=== PATIENT | female | born 1990 | race Caucasian/White ===

== ENCOUNTER 2018-08-03 17:17 | Day surgery (SDC) | payer BC ==
[2018-08-03 18:04] VITALS: BP 119/66; TEMP 99.5; BMI 36.7
--- NOTE | 2018-08-03 18:38 | PDOC.EVN ---
Event Note - Event Note Event Note: [facility] Attending note H&P Patient first seen by Dr Katlin Cruz (FM Resident mailing section clerk) HPI: 28 yo at 35 weeks 1 day with CTX since 1500, every 3-5 minutes, rated as 4/10 pain. No LOF, no sxs, no recent trauma or sex. Good FM. No ESPINOZA or visual changes. Review of Systems: Negative as per HPI Past OB HX: SAB at 7 weeks last year Past Surg HX: appendectomy Past medical HX: none Allergies: PCN Social: negative Physical: VSS AFEB NAD but with some ctx discomfort Abd soft and size consistent Cervix: pending Monitors: FHT baselines 130s, reactive; toco with CTX every 3-5 Interventions ordered: cath UA; IVF hydration Assessment and Plan: 1. Threatened PTL at 35 weeks 1 day: Plan: 1. Cervix check pending 2. If suspect true PTL, will give steroids for EGA les than 36 weeks 6 days; will get sono for EGA if needed 3. Pain meds prn 4. Hydrate and sedate
--- NOTE | 2018-08-03 19:10 | PDOC.EVN ---
Event Note - Event Note Event Note: Cervix checked by me after patient emptied her bladder (Cath for UA): 11/07/-2/ceph/BOWI/posterior, moderate consistency. I do not suspect active PTL. We will hydrate and sedate and recheck strip in 1 hour, possible cervival recheck. I discussed steroids if deemed at risk for delivery in 7 days but I do not feel this is active PTL at this time. Obs for now Plan D/W patient and partner and all questions covered.
--- NOTE | 2018-08-03 19:49 | PDOC.LDHP ---
Labor and Delivery H&P HPI: Chief complaint: contractions HPI: 28 y/o @ 35.1 WGA by LMP c/w 1T US presents with ctx. The patient reports that her contractions started around 3pm and are every 4-5 minutes. She rates them as 4/10 severity. She denies any LOF, vaginal bleeding, vaginal discharge, dysuria, fever. She denies any recent sexual activity or trauma. She reports good movement. She states that she drinks a lot of water throughout the day. Current gestational age (weeks): 35 (35w1d) Due date: 09/06/18 Dating criteria: last menstrual period, first trimester ultrasound Grav: 2 Para: 0 OB History Details: prior SAB last year at around 7 weeks Current complications: none Abnormal US findings: No Past Medical History: Denies Current medications: pre-kushal vitamins Previous surgical history: appendectomy Allergies/Adverse Reactions: Allergies Allergy/AdvReac Type Severity Reaction Status Date / Time penicillin G Allergy Verified 08/03/18 18:11 Penicillins Allergy Verified 08/03/18 18:11 Social history: none - Physical Exam Vital signs reviewed and normal: yes General: NAD, resting Heart: RRR Lungs: CTAB Abdomen: gravid Extremeties: no edema FHT: category 1 (baseline 135/mod variability/+accels/no decels), variability present Rodessa contractions every: 4-5 minutes - Vaginal Exam cm dilated: 1 Effacement: 25% (20%) Station: -2 - OB Labs Blood type: O RH: positive Antibody Screen: negative HIV: negative RPR: negative HEPSAg: negative 1 hour GCT: negative GBS: unknown Rubella: immune - Assessment 1. sIUP - rule out pre-term labor - Plan -: -1L LR bolus -Cath UA -Stadol 1mg, Phenergan 25mg -Monitor until contractions space out Allergies/Adverse Reactions: Allergies Allergy/AdvReac Type Severity Reaction Status Date / Time penicillin G Allergy Verified 08/03/18 18:11 Penicillins Allergy Verified 08/03/18 18:11
[2018-08-03] MEDS ORDERED: Promethazine HCl 25 MG/ML VIAL IM/IV SCH (20:00)
[2018-08-03] MEDS ORDERED: Butorphanol Tartrate 1 MG/ML VIAL SLOW IVP SCH (20:00)
[2018-08-03] MEDS ORDERED: Lactated Ringer's 1,000 ML IV SCH (20:00)
--- NOTE | 2018-08-03 20:09 | PDOC.EVN ---
Event Note - Event Note Event Note: Note: Dr Torres initial entries were under an incorrect J number for this patient. She is aware of those entries in the incorrect account.
[2018-08-03 20:48] LABS: Bilirubin Negative (Negative); Blood, Urine Negative (Negative); Clarity CLEAR (Clear); Glucose, Urine (Dipstick) Negative (Negative); Leukocyte Negative (Negative); Nitrite Negative (Negative); Protein, Urine (Dipstick) Negative (Neg-Trace); Specific Gravity, Urine 1.003 (1.002-1.036); Urobilinogen 0.2 mg/dL (0.2-1.0)
--- NOTE | 2018-08-03 20:59 | PDOC.EVN ---
Event Note - Event Note Event Note: Urinalysis came back normal. Patient's contractions have spaced out significantly since the stadol/phenergan/ LR. She has not had a contraction for about 20 minutes and prior to that they were every 8-10 minutes. Will d/c patient home. Gave strict labor precautions including: regular, painful ctx, LOF, vaginal bleeding, decreased movement. Encouraged continued routine f/u with PCP.
== END 2018-08-03 21:10 | disposition home or self-care (01) ==
LOC: L&D/OP 17:17
PROVIDERS: ATTEND Advanced Practice Midwife
DX: O47.03 False labor before 37 completed weeks of gestation, third trimester (principal); Z3A.35 35 weeks gestation of pregnancy; Z79.899 Other long term (current) drug therapy; Z88.0 Allergy status to penicillin
CPT/HCPCS: 81003; 96360; 96361; 99283

== ENCOUNTER 2018-08-24 00:27 | Inpatient (IN) | payer BC ==
[2018-08-24] MEDS ORDERED: Diphenoxylate HCl/Atropine Tablet PO PRN ×2 (00:59)
[2018-08-24] MEDS ORDERED: HYDROcodone/Acetaminophen 5/325 mg Tablet PO PRN ×4 (00:59→21:10)
[2018-08-24] MEDS ORDERED: Lactated Ringer's 1,000 ML IV PRN (00:59)
[2018-08-24] MEDS ORDERED: Promethazine HCl 25 MG/ML VIAL IM PRN ×2 (00:59→13:29)
[2018-08-24] MEDS ORDERED: Methylergonovine 0.2 MG/ML VIAL IM PRN ×2 (00:59→21:10)
[2018-08-24] MEDS ORDERED: Misoprostol 200 MCG TAB PR PRN (00:59)
[2018-08-24] MEDS ORDERED: NS / Oxytocin 40 units/1000ml 1,000 ML IV PRN (00:59)
[2018-08-24] MEDS ORDERED: Ibuprofen 800 MG TAB PO PRN (00:59)
[2018-08-24] MEDS ORDERED: Lidocaine 1% (PF) 30 ML VIAL SC PRN (00:59)
[2018-08-24] MEDS ORDERED: Carboprost 250 MCG/ML AMP IM PRN (00:59)
[2018-08-24] MEDS ORDERED: Ondansetron PF 4 MG/2 ML Vial IVP PRN ×3 (00:59→21:10)
[2018-08-24 02:04] LABS: Hemoglobin 12.5 g/dL (12.0-16.0); Mean Corpuscular HGB CONC 34.3 g/dL (32.0-36.0); Mean Corpuscular Hemoglobin 29.6 pg (27.0-31.0); Mean Corpuscular Volume 86.4 fL (78.0-98.0); Mean Platelet Volume 10.6 fL (7.4-10.4); Platelet Count 196 thou/uL (130-400); RBC Distribution Width 11.7 % (11.5-14.5); Red Blood Cell (RBC) Count 4.22 mill/uL (4.20-5.40); White Blood Cell (WBC) Count 14.2 thou/uL (4.8-10.8)
[2018-08-24 02:51] LABS: HBSAg Index 0.25 S/CO (0-0.99); Hep B Surf Ag Non-Reactive S/CO (NonReactive)
[2018-08-24 04:31] VITALS: BMI 39.4
[2018-08-24 05:48] LABS: Syphilis Antibody Nonreactive (Nonreactive); Syphilis Antibody Index 0.05 S/CO (<1.00 Non-Reactive)
[2018-08-24] MEDS ORDERED: Butorphanol Tartrate 1 MG/ML VIAL ONE (07:15)
[2018-08-24] MEDS ORDERED: Terbutaline Sulfate 1 MG/ML VIAL ONE (07:27)
[2018-08-24] MEDS ORDERED: Butorphanol Tartrate 1 MG/ML VIAL SLOW IVP PRN (12:03)
[2018-08-24] MEDS ORDERED: Terbutaline Sulfate 1 MG/ML VIAL SC PRN (12:04)
--- NOTE | 2018-08-24 12:06 | PDOC.LDHP ---
Labor and Delivery H&P Chief complaint: loss of fluid HPI: Patient called CNM apprxmatly 2100 last night to report SROM with big clear gush of fluid and popping sensation. She was having mild contractions prior to the water breaking. Three hours later, she was luh every three minutes and hurting and headed to the hospital. Current gestational age (weeks): 38 Dating criteria: last menstrual period Grav: 1 Para: 0 Current complications: none Abnormal US findings: No Current medications: pre- vitamins Allergies/Adverse Reactions: Allergies Allergy/AdvReac Type Severity Reaction Status Date / Time penicillin G Allergy Verified 08/24/18 04:35 Penicillins Allergy Verified 08/24/18 04:35 Social history: none - Physical Exam Vital signs reviewed and normal: yes General: breathing through contractions Lungs: nonlabored breathing Abdomen: gravid Extremeties: trace edema FHT: category 1 - Vaginal Exam cm dilated: 3 Effacement: 75% Station: -1 - OB Labs Blood type: O RH: positive Antibody Screen: negative HIV: negative RPR: negative HEPSAg: negative GBS: negative Urine drug screen: not done - Assessment L&D Assessment: term rupture in membranes (with regular uterine contractions) - Plan Plan: admit to L&D
--- NOTE | 2018-08-24 12:10 | PDOC.LDPN ---
Labor & Delivery Progress Note - Subjective Subjective: painful contractions - Objective Vital signs reviewed and normal: yes General: breathing through contractions Uterine fundus: non tender Dilation: 5 Effacement: 90% Station: -1 FHT: category 2 (prolonged later decelerations initially in the 60s then recovered to 90s. fully recovered at 10 mins. IUPC and FSE placed) IUPC placed: yes FSE placed: yes Resuscitative measures: maternal oxygen, maternal IV fluids, maternal position change Plan: other (terbutaline given. ) -: this is a late entry for labor event which happened at approximately 0745 this am.
[2018-08-24] MEDS ORDERED: Fentanyl 4 mcg/Bup 0.1% Cadd 100 ML ONE (12:53)
[2018-08-24] MEDS ORDERED: NS w/ Oxytocin 10 units 500 ML IV SCH (13:00)
[2018-08-24] MEDS ORDERED: Lactated Ringer's 500 ML IV PRN (13:29)
[2018-08-24] MEDS ORDERED: Acetaminophen 325 MG TAB PO PRN (13:29)
[2018-08-24] MEDS ORDERED: Naloxone HCl 0.4 mg/ml Vial IVP PRN ×2 (13:29)
[2018-08-24] MEDS ORDERED: ePHEDrine/0.9% NaCl/PF SYRINGE 50 mg/10 ml SLOW IVP PRN (13:29)
[2018-08-24] MEDS ORDERED: diphenhydrAMINE 50 MG/ML VIAL IVP PRN (13:29)
[2018-08-24] MEDS ORDERED: Eucerin (Mineral Oil/Petrolatum,White) 30 gm Jar TOP PRN (13:29)
[2018-08-24] MEDS ORDERED: Fentanyl 4 mcg/Bupivacaine 0.1% Cassette 100 ML EPIDURAL SCH (13:30)
[2018-08-24] MEDS ORDERED: Communication Order-Pharmacy FS SCH (13:30)
--- NOTE | 2018-08-24 19:32 | PDOC.OPDEL ---
OB Operative/Delivery Note Delivery Dr/Surgeon: Song Chew Pre-Delivery Diagnosis: active labor Procedure/Post Delivery Dx: spontaneous vaginal delivery Weeks gestation: 38 Anesthesia: epidural - Findings A Sex: male Weight: 8 lb 1.6 oz - 1 min: 9 - 5 min: 9 - Additional Findings/Plan Placenta delivered: spontaneous Repaired Obstetrical Laceration: vaginal (1st degree. One figure eight placed for hemostasis.) Estimated blood loss: 200mL Compilations/Other Findings: Immediate temperature of 100.5 Post delivery plan: routine recovery
--- NOTE | 2018-08-24 20:48 | PDOC.EVN ---
Event Note - Event Note Event Note: Request to start ABX by Sharon Chew. Now s/p with temp to 100.5 x 2. VSS. Allergy to PCN. Will start Get/Clinda and observe.
[2018-08-24] MEDS: Clindamycin/D5W 900 MG in Premix Bag 1 BAG IVPB SCH (21:08)
[2018-08-24] MEDS ORDERED: Bisacodyl 10 MG SUPP PR PRN (21:10)
[2018-08-24] MEDS ORDERED: Misoprostol 200 MCG TAB VAG PRN (21:10)
[2018-08-24] MEDS ORDERED: NS / Oxytocin 40 units/1000ml 1,000 ML IV SCH (21:10)
[2018-08-24] MEDS ORDERED: diphenhydrAMINE 25 MG CAP PO PRN (21:10)
[2018-08-24] MEDS ORDERED: Benzocaine/Menthol 20-0.5% 60 ML CAN TOP PRN (21:10)
[2018-08-24] MEDS ORDERED: Milk Of Magnesia 30 ML UDCUP PO PRN (21:10)
[2018-08-24] MEDS ORDERED: Docusate Calcium (SURFAK) 240 MG CAP PO SCH (21:15)
[2018-08-24] MEDS: Gentamicin Sulfate 80 MG in Premix Bag 1 BAG IVPB SCH (21:42)
[2018-08-25] MEDS: Ibuprofen 800 MG TAB PO SCH ×4 (01:09→21:42)
--- NOTE | 2018-08-25 02:12 | PDOC.PP ---
Post Progress Note Post Day #: 1 Subjective: 28 yo delivered by at ~1900 on 08/24. She states she is feeling well, "still trying to figure out ." Reassurance provided. Patient states she is eating, voiding, without difficulty. States she was able to walk to the restroom once. PO intake tolerated: yes Flatus: yes Ambulation: yes Vital Signs (12 hours) Temp Pulse Resp BP 08/25/18 01:41 98.4 F 101 H 18 120/56 L Weight Weight 97.976 kg - Physical Examination General: NAD Cardiovascular: no m/r/g, RRR Respiratory: clear to auscultation bilaterally, non-labored breathing Abdominal: + bowel sounds, appropriately TTP Extremities: negative homans (B) Skin: no rash Neurological: no gross focal deficits Psychiatric: A&Ox3, normal affect Result Diagrams: 08/24/18 01:50 Additional Labs: Post Labs Blood Type O POSITIVE 08/24/18 01:50 Hep Bs Antigen Non-Reactive S/CO (NonReactive) 08/24/18 01:50 (1) SROM (spontaneous rupture of membranes) Code(s): [id number] - Status: Acute (2) Status: Acute - Assessment/Plan #PP day 1 - s/p - 1st degree vaginal lac - minimal bleeding - check hgb in AM - consult - standard PP care # Chorioamnioitis - 100.5 x2 shortly following delivery - started Clinda/Gent, PCN allergy - last temp was 98.6 - cont with tylenol, monitorring Dispo: 2-3 days <Clement Saini - Last Filed: 08/25/18 02:28> Vital Signs (12 hours) Temp Pulse Resp BP BP 08/25/18 03:41 94 17 122/60 08/25/18 02:43 99 17 121/58 L 08/25/18 01:41 98.4 F 101 H 18 120/56 L Weight Weight 97.976 kg Result Diagrams: 08/24/18 01:50 Additional Labs: Post Labs Blood Type O POSITIVE 08/24/18 01:50 Hep Bs Antigen Non-Reactive S/CO (NonReactive) 08/24/18 01:50 <Lazaro Gaston - Last Filed: 08/25/18 06:35> Attending Addendum - Attending Addendum I personally evaluated the patient and discussed the management with Dr. Saini. I agree with the Assessment and Plan documented above. <Lazaro Gaston - Last Filed: 08/25/18 06:35>
[2018-08-25] MEDS: Clindamycin/D5W 900 MG in Premix Bag 1 BAG IVPB SCH ×3 (05:41→23:07)
[2018-08-25] MEDS: Gentamicin Sulfate 80 MG in Premix Bag 1 BAG IVPB SCH ×3 (06:28→21:44)
[2018-08-25] MEDS ORDERED: Adacel (T-DAP) 0.5 ML SYRINGE IM ONE (09:00)
[2018-08-25] MEDS ORDERED: Varicella virus, LIVE 0.5 ML VIAL SC ONE (09:00)
[2018-08-25] MEDS: Prenatal Vitamin 1 TAB PO SCH (09:58)
[2018-08-25] MEDS: Docusate Calcium (SURFAK) 240 MG CAP PO SCH ×2 (09:59→21:42)
[2018-08-25] MEDS: Ferrous Sulfate 325 MG TAB PO SCH ×2 (10:00→16:18)
[2018-08-25] MEDS ORDERED: Bupivacaine 0.25% HCL 30 ML VIAL ONE (11:11)
--- NOTE | 2018-08-25 12:24 | PDOC.PP ---
Post Progress Note Post Day #: 1 Subjective: patient report being sore, but overall doing well. bleeding has slowed down to the amount of a period. she is urinating, but has yet ot pass gas. Her main concern right now is sinc eth baby is not latching and is gagging and spitting up a lot. PO intake tolerated: yes Flatus: no Ambulation: yes Vital Signs (12 hours) Temp Pulse Resp BP BP Pulse Ox 08/25/18 08:00 98.4 F 85 18 124/58 L 98 08/25/18 03:41 94 17 122/60 08/25/18 02:43 99 17 121/58 L 08/25/18 01:41 98.4 F 101 H 18 120/56 L Weight Weight 216 lb - Physical Examination General: NAD Cardiovascular: RRR Respiratory: non-labored breathing Abdominal: lochia (minimal) Fundus firm & at: -1 Extremities: negative homans (B) Skin: no rash Neurological: no gross focal deficits Psychiatric: A&Ox3, normal affect Result Diagrams: 08/24/18 01:50 Additional Labs: Post Labs Blood Type O POSITIVE 08/24/18 01:50 Hep Bs Antigen Non-Reactive S/CO (NonReactive) 08/24/18 01:50 (1) (spontaneous vaginal delivery) Code(s): O80 - ENCOUNTER FOR FULL-TERM UNCOMPLICATED DELIVERY Status: Acute (2) Chorioamnionitis Code(s): O41.1290 - CHORIOAMNIONITIS, UNSP TRIMESTER, NOT APPLICABLE OR UNSP Status: Acute - Assessment/Plan A; G1 now p1 SP at 38weeks. Post delivery complicated by fever and chorioamnionitis. On IV antibiotic therapy now. P: continue antibiotics x 24 hours. then DC to ensure patient is afebrile without antibiotics. support at bedside given. Late discharge tomorrow night if is discharged and mom is afebrile and hold for Monday morning if infant will not be discharged or antibiotic need to be restarted. .
[2018-08-26 01:02] VITALS: BP 123/59; TEMP 98.4
--- NOTE | 2018-08-26 01:31 | PDOC.PP ---
Post Progress Note Post Day #: 2 Subjective: Doing well, no abdominal discomfort PO intake tolerated: yes Flatus: yes Ambulation: yes Vital Signs (12 hours) Temp Pulse Resp BP BP Pulse Ox 08/26/18 00:50 98.4 F 84 20 123/59 L 98 08/25/18 20:10 98.8 F 84 22 H 114/55 L 99 08/25/18 16:39 98.2 F 91 18 128/76 Weight Weight 216 lb - Physical Examination General: NAD Cardiovascular: no m/r/g Respiratory: clear to auscultation bilaterally Abdominal: + bowel sounds Extremities: negative homans (B) Neurological: no gross focal deficits Psychiatric: A&Ox3, normal affect Result Diagrams: 08/24/18 01:50 Additional Labs: Post Labs Blood Type O POSITIVE 08/24/18 01:50 Hep Bs Antigen Non-Reactive S/CO (NonReactive) 08/24/18 01:50 (1) (spontaneous vaginal delivery) Code(s): O80 - ENCOUNTER FOR FULL-TERM UNCOMPLICATED DELIVERY Status: Acute - Assessment/Plan PPD2, on Clinda and gent for presumed metritis...afebrile x 24 hrs: Stable for DSCH. Home today around noon. Continue ABX until noon.
--- NOTE | 2018-08-26 01:34 | PDOC.EVN ---
Event Note - Event Note Event Note: DISCHARGE NOTE Admit date: 08/24/18 Discharge Date 08/26/18 Procedure: Vaginal Delivery IV Antibiotics Course: with Sharon Light on 08/24/18 in the evening...started on emperic ABX for temp 100.5. I evaluated the patient on 08/26/18 at 0130 and found her to be afebrile with benign exam. We will DC home 08/26/18 around 12 noon. Continued ABX until noon. F[facility]
[2018-08-26] MEDS: Ibuprofen 800 MG TAB PO SCH (06:25)
[2018-08-26] MEDS: Ferrous Sulfate 325 MG TAB PO SCH (09:22)
[2018-08-26] MEDS: Docusate Calcium (SURFAK) 240 MG CAP PO SCH (10:17)
[2018-08-26] MEDS: Prenatal Vitamin 1 TAB PO SCH (10:17)
== END 2018-08-26 15:30 | disposition home or self-care (01) | DRG 805 ==
LOC: L&D/OP 00:27 → L&D-LIB 00:59 → L&D 06:47 → 3SE 08-25 01:53
PROVIDERS: ADMIT Obstetrics & Gynecology; ATTEND Obstetrics & Gynecology
PROC: 10E0XZZ Delivery of Products of Conception, External Approach (ICD-10-PCS; principal; 2018-08-24)
PROC: 0HQ9XZZ Repair Perineum Skin, External Approach (ICD-10-PCS; 2018-08-24)
PROC: 10H07YZ Insertion of Other Device into Products of Conception, Via Natural or Artificial Opening (ICD-10-PCS; 2018-08-25)
PROC: 4A1H74Z Monitoring of Products of Conception, Cardiac Electrical Activity, Via Natural or Artificial Opening (ICD-10-PCS; 2018-08-25)
DX: O70.0 First degree perineal laceration during delivery (principal); O41.1230 Chorioamnionitis, third trimester, not applicable or unspecified; Z37.0 Single live birth; O76 Abnormality in fetal heart rate and rhythm complicating labor and delivery; Z3A.38 38 weeks gestation of pregnancy
CPT/HCPCS: 36415; 51702; 85027; 86780; 86850; 86900; 86901; 87340; J0595; J1580; J2001; J3105; J3490; S0020